=== PATIENT | female | born 1950 | race Caucasian/White ===

== ENCOUNTER 2023-08-25 21:03 | Inpatient (IN) | payer MEDICARE, SELFPAY ==
--- OUTSIDE RECORDS SUMMARY | 2023-08-25 21:06 | XMS_ITS | Continuity of Care Document ---
Author Organization [facility] Address [address] [place] [address]- Care Team Providers Care Clinical Research Tech Name Role Phone Wai MENDEZ, Basilio A Primary Care Physician [phone] [place] [facility] [place] 08/18/23 [facility] [address] [facility] [address] [place] [address]- Referring Physician: Amairani Garza Allergies, Adverse Reactions, Alerts Substance Reaction Severity Status azithromycin rash Active Zithromax skin myles, hives Active Remeron Active clonazePAM Active RisperDAL tremor, tension in muscles A ctive Immunizations Given and Recorded Vaccine Date Status Refusal Reason influenza virus vaccine, inactivated 02/09/16 Give n influenza virus vaccine, inactivated 03/13/15 Give n influenza virus vaccine, inactivated 1 12/24/13 Gi donavon influenza virus vaccine, inactivated 2 12/31/12 Gi donavon pneumococcal 13-valent vaccine 3 11/30/14 Given tetanus/diphtheria/pertussis, acel(Tdap) 4 08/22/14 Given pneumococcal 23-valent vaccine 5 04/08/11 Recorded 1Result Comment: [12/24/2013] Dr. Kamara 2Result Comment: [12/31/2012] Vis given HEATHER 3Result Comment: [11/30/2014] consent signed 4Result Comment: [08/22/2014] consent signed 5Result Comment: [12/31/2012] Per patient done for work- [employer] [facility] Medications acetaminophen 500 mg oral tablet 1 tablet = 500 mg, By Mouth, 3 times a day, PRN as needed for pain, # 24 tablet, 0 Refills, Maintenance, 10/31/20 9:03:00 EDT, Tablet, Partial fill upon patient request if the prescription is for a schedule II opioid drug. Start Date: 10/31/20 Status: Ordered Aricept 5 mg oral tablet 5 mg, 1, tablet, By Mouth, Daily at bedtime, for memory loss; stop if diarrhea, # 30 tablet, Refills 1, Tot. Refills 1, Maintenance, 06/24/23 16:54:00 EDT, Route to Pharmacy Electronically, [facility] #[id number], Partial fill upon patient reques... Start Date: 06/24/23 Stop Date: 08/23/23 Status: Ordered aspirin 81 mg oral capsule 1 capsule = 81 mg, By Mouth, Daily, do not exceed 48 capsules in 24 hours, # 30 capsule, 0 Refills,Maintenance, 02/21/23 10:56:00 EST, Capsule, Partial fill upon patient request if the prescription is for a schedule II opioid drug. Start Date: 02/21/23 Status: Ordered Coenzyme Q10 100 mg oral capsule 1 capsule = 100 mg, By Mouth, Daily, for memory loss, # 30 capsule, 6 Refills, Maintenance, 01/31/23 9:38:00 EDT, Capsule, [facility]/pharmacy #[id number], Partial fill upon patient request if the prescription isfor a schedule II opioid drug. Start Date: 01/31/23 Stop Date: 08/29/23 Status: Ordered Depakote ER 250 mg oral tablet, extended release See Instructions, take 1 tablet with supper and after 2 weeks take 2 tab with supper, # 60 tablet, 0 Refills, Maintenance, 04/01/23 15:21:00 EST, ER Tablet, [facility] #[id number], Partial fill upon patient request if the prescription is for a sc... Start Date: 04/01/23 Status: Ordered escitalopram 10 mg oral tablet TAKE 1 TABLET BY MOUTH EVERY DAY Start Date: 04/14/23 Status: Ordered ibuprofen 600 mg oral tablet 600 mg, 1, tablet, By Mouth, 3 times a day, Refills 0, Maintenance, 09/13/20 17:35:00 EDT, Partial fill upon patient request if the prescription is for a schedule II opioid drug. Start Date: 09/13/20 Status: Ordered Inderal LA 160 mg oral capsule, extended release 1 capsule = 160 mg, By Mouth, Daily, # 30 capsule, 0 Refills, Maintenance, 10/31/20 9:04:00 EDT, [facility], Partial fill upon patient request if the prescription is for a schedule II opioid drug. Start Date: 10/31/20 Status: Ordered Peak Flow Meter See Instructions, # 1 each, Maintenance, log best of 3 at least twice daily until f/u, then with each asthma flare - 493.90, 12/11/12 14:17:20, Compound Start Date: 12/11/12 Status: Ordered prazosin 1 mg oral capsule 1 mg, 1, capsule, By Mouth, Daily at bedtime, Refills 0, Maintenance, 09/13/20 15:41:00 EDT, Partial fill upon patient request if the prescription is for a schedule II opioid drug. Start Date: 09/13/20 Status: Ordered QUEtiapine 25 mg oral tablet TAKE 1/2 TABLET BY MOUTH TWICE A DAY NEEDED Start Date: 04/14/23 Status: Ordered Vitamin B12 = 2,500 mcg, Sublingual, Daily, 0 Refills, Maintenance, 09/13/20 17:38:00 EDT, Partial fill upon patient request if the prescription is for a schedule II opioid drug. Start Date: 09/13/20 Status: Ordered Vitamin D3 oral tablet = 25 mcg, By Mouth, Daily, 0 Refills, Maintenance, 09/13/20 17:37:00 EDT, Partial fill upon patientrequest if the prescription is for a schedule II opioid drug. Start Date: 09/13/20 Status: Ordered Problem List Condition Confirmation Course Effective Dates Status Health St atus Informant Headache Confirmed Active Mild cognitive impairment Confirmed Active Mild persistent asthma Confirmed Active Obese class I Confirmed Active Post-menopausal Confirmed Active Social History Social History Type Response Smoking Status Never (less than 100 in lifetime) entered on: 09/13/20 Sex Patient Care team information Care Team Personnel Name: Basilio Carreno NP Position: Reference Physician Member Role: PCP Address: Address: [address] [place] [id number]- Name: Ese You Position: [facility] Outreach Member Role: Lifetime Consulting Physician Name: Luann Ceballos RN Position: [facility] RN Member Role: Primary Care Nurse Care Team Related Persons Name: MARICRUZ LIVINGSTON
--- OUTSIDE RECORDS SUMMARY | 2023-08-25 21:06 | XMS_ITS | Continuity of Care Document ---
Author Organization [facility] Address [address] [place] [address]- Care Team Providers Care Distribution Collection Operator Name Role Phone Marcelle Ren MD Primary Care Physician Encounter [facility] [place] Date(s): 11/09/20 - 11/09/[address] [address]- Discharge Disposition: A-D/C Home Attending Physician: Wilian Montana MD Admitting Physician: Wilian Montana MD Referring Physician: Wilian Montana MD Allergies, Adverse Reactions, Alerts Substance Reaction Severity [...] Comment: [12/31/2012] Per patient done for [facility]- [facility] Medications acetaminophen 500 mg oral tablet 1 tablet = 500 mg, By Mouth, 3 times a day, PRN as needed for pain, # 24 tablet, 0 Refills, Maintenance, 10/31/20 9:03:00 EDT, Tablet, Partial fill upon patient request if the prescription is for a schedule II opioid drug. Start Date: 10/31/20 Status: Ordered ibuprofen 600 mg oral tablet [...] opioid drug. Start Date: 09/13/20 Status: Ordered sertraline 25 mg oral tablet 2 tablet = 50 mg, By Mouth, Daily at bedtime, # 30 tablet, 0 Refills, Maintenance, 09/13/20 15:41:00 EDT, Tablet, Partial fill upon patient request if the prescription is for a schedule II opioid drug. Start Date: 09/13/20 Status: Ordered Vitamin B12 = 2,500 mcg, [...] Date: 09/13/20 Status: Ordered Problem List Condition Effective Dates Status Health Status Inform ant Headache(Confirmed) Active Mild persistent asthma(Confirmed) Active Post-menopausal(Confirmed) Active Results Radiology Reports * Exam Date Time Procedure Performing Provider Status 11/09/20 11:42 AM XR Lumbar Puncture Therapeutic Kush Heath Madeline (Verified) Notes: (XR Lumbar Puncture Therapeutic) Reason For Exam: nph RESULT: XR Lumbar Puncture Therapeutic Procedure: Fluoroscopic guided lumbar puncture. Indication: Reason: nph; Clinical Question(s): Other: Other: Fluoroscopy time: 1 minute 30 seconds at 3 fps Dose Area Product: 26.24 uGy*m2 Description of procedure: Informed consent was obtained from the patient. A timeout was performed prior to the procedure according to protocol. Sterile technique used used throughout the procedure. 1% lidocaine was used for skin analgesia. A 22 gauge needle was advanced towards the central spinalcanal in the lower lumbar spine directed at the L3-4 level using a posterior sublaminar approach. Clear spinal fluid returned. Opening pressure was measured at 19 centimeters of water in the prone position. Approximately 35 cc fluid was drained. Specimens were sent for requested laboratory studies.The stylet was replaced and the needle was removed. There were no immediate complications. Impression: Fluoroscopic guided lumbar puncture performed without complication. Opening pressure measured 19 centimeters of water. WSN: [id number] Ordering Physician: Jazzmine Medina Dictated By: El Gibbs MD Dictated Date/Time: 11/09/20 1:33 pm Reviewed By: El Gibbs MD Signed By: El Gibbs MD Signed Date/Time: 11/09/20 1:33 pm Transcribed By: DOMINGO Transcribed Date/Time: 11/09/20 1:32 pm Vital Signs Most recent to oldest [Reference Range]: 1 2 3 Height 158 cm (11/09/20 9:28 AM) Oxygen Saturation [94-100 %] 100 % (11/09/20 12:00 PM) 97 % (11/09/20 11:45 AM) 100 % (11/09/20 11:45 AM) Pulse Rate [55-90 bpm] 63 bpm (11/09/20 9:28 AM) Blood Pressure [90-138/55-84 mm Hg] 151/66mm Hg *H* (11/09/20 11:45 AM) 129/58mm Hg (11/09/20 9:28 AM) Respiratory Rate [16-30 br/min] 14 br/min *L* (11/09/20 9:28 AM) Temperature [96.8-100.4 DegF] 97.4 DegF (11/09/20 11:45 AM) 97.7 DegF (11/09/20 9:28 AM) Mode of Delivery (Oxygen) Room air (11/09/20 12:00 PM) Room air (11/09/20 9:28 AM) Blood pressure sites Arm, right (11/09/20 9:28 AM) Temperature Route Temporal (11/09/20 11:45 AM) Temporal (11/09/20 9:28 AM) Dry Weight 73 kg (11/09/20 9:28 AM) Social History Social History Type Response Smoking Status Never (less than 100 in lifetime) entered on: 09/13/20 Sex
--- OUTSIDE RECORDS SUMMARY | 2023-08-25 21:06 | XMS_ITS | Continuity of Care Document ---
Author Organization [facility] Address [address] [place] [address] Gwen colon, [address] [place] [address]- Care Team Providers Care Strategy Intern Name Role Phone Mikal MULLER, Marcelle Primary Care Physician Encounter [facility] Date(s): 02/26/21 - 03/28/21 [facility] [address] [place] [address] Drive, [address] [place] [address]- Allergies, Adverse Reactions, Alerts Substance Reaction Severity Status azithromycin rash Active Zithromax skin myles, hives Active Remeron Active RisperDAL tremor, tension in muscles A ctive clonazePAM Active Immunizations Given and Recorded Vaccine Date Status [...] 5Result Comment: [12/31/2012] Per patient done for [facility] [facility] Medications acetaminophen 500 mg oral tablet [...] Active Mild persistent asthma(Confirmed) Active Post-menopausal(Confirmed) Active Social History Social History Type Response Smoking Status Never (less than 100 in lifetime) entered on: 09/13/20 Sex
--- OUTSIDE RECORDS SUMMARY | 2023-08-25 21:06 | XMS_ITS | Continuity of Care Document ---
Author Organization [facility] Address [address] [place] [address]- Care Team Providers Care Wafer Line Worker Name Role Phone Marcelle Ren MD Primary Care Physician Encounter [facility] [place] Date(s): 05/16/20 - 07/20/20 [facility] [address] [place] [address]- Attending Physician: Radha Neri MD Admitting Physician: Radha Neri MD Referring Physician: Marcelle Ren MD Allergies, Adverse Reactions, Alerts Substance Reaction Severity Status azithromycin rash Active Immunizations Given and Recorded Vaccine Date [...] Comment: [12/31/2012] Per patient done for work- [place] [facility] Medications amoxapine 25 mg oral tablet 1 tablet = 25 mg, By Mouth, 3 times a day, 0 Refills, Maintenance, 03/16/18 9:18:34 EST Start Date: 03/16/18 Status: Ordered Cod liver oil Cod liver oil, Refills 0, Maintenance, 07/15/16 13:28:15, Compound Start Date: 07/15/16 Status: Ordered ibuprofen 200 mg oral tablet 200 mg, 1, tablet, By Mouth, Every 6 hours, Refills 0, Maintenance, 12/18/17 14:03:01 EDT Start Date: 12/18/17 Status: Ordered Lions Magdy Lipoonam Curran, Refills 0, Maintenance, 07/15/16 13:28:47, Compound Start Date: 07/15/16 Status: Ordered Peak Flow Meter See Instructions, # 1 each, Maintenance, log best of 3 at least twice daily until f/u, then with each asthma flare - 493.90, 12/11/12 14:17:20, Compound Start Date: 12/11/12 Status: Ordered Vitamin D3 2000 intl units oral tablet 1 tablet = 2,000 International_Units, By Mouth, Daily, # 30 tablet, 6 Refills, Maintenance, 04/28/15 11:12:37, 1 tablet By Mouth Daily,x30 days Start Date: 04/28/15 Stop Date: 11/24/15 Status: Ordered Problem List Condition Effective Dates Status Health Status Inform ant Headache(Confirmed) Active Mild persistent asthma(Confirmed) Active Post-menopausal(Confirmed) Active Social History Social History Type Response Smoking Status Never smoker; Tobacc o user in household: No entered on: 10/25/14 Sex
--- OUTSIDE RECORDS SUMMARY | 2023-08-25 21:06 | XMS_ITS | Continuity of Care Document ---
Author Organization [facility] Address Unknown Care Team Providers Care Billing Auditor Name Role Phone Marcelle Ren MD Primary Care Physician [facility] [facility] [place] [facility] [place] [id number] Date(s): 03/08/21 - 04/07/21 [facility] Attending Physician: Ricki Underwood Admitting Physician: Ricki Underwood Referring Physician: AdmtrRicki Allergies, Adverse Reactions, Alerts Substance Reaction Severity [...] 5Result Comment: [12/31/2012] Per patient done for [facility] retreat Medications acetaminophen 500 mg oral tablet [...]
--- OUTSIDE RECORDS SUMMARY | 2023-08-25 21:06 | XMS_ITS | Continuity of Care Document ---
Author Organization [facility] Address [address] [place] [address]- Care Team Providers Care Housecalls Nurse Name Role Phone Marcelle Ren MD Primary Care Physician [place] [facility] [place](s): 10/03/20 - 11/02/20 [facility] [address] [place] [address]- Referring Physician: Amairani Garza Allergies, Adverse Reactions, [...] 5Result Comment: [12/31/2012] Per patient done for [facility] retreat Medications acetaminophen 500 mg oral [...]
--- OUTSIDE RECORDS SUMMARY | 2023-08-25 21:06 | XMS_ITS | Continuity of Care Document ---
Author Organization [facility] Address [address] [place] [address]- Care Team Providers Care Fire Boat Engineer Name Role Phone Kyle MENDEZ, Maria Esther Garcia Primary Care Physician Encounter [facility] [place] Date(s): 09/17/22 - 11/08/22 [facility] [address] [place] [address]- Encounter Diagnosis Pain in right knee(Final) - Discharge Disposition: A-D/C Home Attending Physician: Basilio Carreno NP Admitting Physician: Basilio Carreno NP Referring Physician: Basilio Carreno NP Allergies, Adverse Reactions, Alerts Substance Reaction Severity [...] patient done for work- [place] [facility] Medications acetaminophen 500 mg oral tablet 1 tablet = 500 mg, By Mouth, 3 times a day, PRN as needed for pain, # 24 tablet, 0 Refills, Maintenance, 07/27/21 9:03:00 EDT, Tablet, Partial fill upon patient [...] St atus Informant Headache Confirmed Active Mild persistent asthma Confirmed Active Post-menopausal Confirmed Active Social History Social History Type Response Smoking Status Never (less than 100 in lifetime) entered on: 09/13/20 Sex Patient Care team information Care Team Personnel Name: Ese You Position: [facility] Outreach Member Role: Lifetime Consulting Physician Name: Maria Esther Wright NP Position: [facility] Outreach Member Role: PCP Address: Address: [address] [place] [id number] Name: Luann Ceballos RN Position: [facility] RN Member Role: Primary Care Nurse Care Team Related Persons Name: MARICRUZ LIVINGSTON
--- OUTSIDE RECORDS SUMMARY | 2023-08-25 21:06 | XMS_ITS | Continuity of Care Document ---
Author Organization [facility] Address [address] [place] [address] darlene, [address] [place] [address]- Care Team Providers Care Travel Money Advisor Name Role Phone Mikal MULLER, Marcelle Primary Care Physician Encounter [facility] Date(s): 02/26/21 - 04/11/21 [facility] [address] [place] [address] Drive, [address] [place], [place] [address] Attending Physician: Hang Stein MD Referring Physician: Kyle MENDEZ, Maria Esther Garcia Allergies, Adverse Reactions, Alerts Substance Reaction Severity [...]
--- OUTSIDE RECORDS SUMMARY | 2023-08-25 21:07 | XMS_ITS | Continuity of Care Document ---
Author Organization [facility] Address Unknown Care Team Providers Care Police Detective Name Role Phone Marcelle Ren MD Primary Care Physician Encounter [facility] [place] Date(s): 09/07/21 - 10/07/21 [facility] Attending Physician: Ricki Underwood Admitting Physician: Ricki Underwood Referring Physician: AdmRicki forman Allergies, Adverse Reactions, Alerts Substance Reaction Severity Status azithromycin rash Active Zithromax skin myles, hives Active clonazePAM Active RisperDAL tremor, tension in muscles A ctive Remeron Active Immunizations Given and Recorded Vaccine Date [...] Comment: [12/31/2012] Per patient done for work- [place] [facility] Medications acetaminophen 500 mg oral tablet [...]
--- OUTSIDE RECORDS SUMMARY | 2023-08-25 21:07 | XMS_ITS | Continuity of Care Document ---
Author Organization [facility] Address [address] [facility], [address]r d Floor, [address] [place] [address]- Care Team Providers Care Senior Producer Name Role Phone Marcelle Ren MD Primary Care Physician Encounter [facility] Date(s): 11/01/20 - 11/08/20 [facility] [address] [place], [address] Floor, [address] [place] [id number] Attending Physician: Jazzmine Medina DNP Referring Physician: Marcelle Ren MD Allergies, Adverse [...] Active Mild persistent asthma(Confirmed) Active Post-menopausal(Confirmed) Active Vital Signs Most recent to oldest [Reference Range]: 1 Height 158 cm (11/01/20 8:45 AM) Weight 71.8 kg (11/01/20 8:45 AM) Pulse Rate [55-90 bpm] 63 bpm (11/01/20 8:45 AM) Body Mass Index [18.5-24.99] 28.76 *H* (11/01/20 8:45 AM) Blood Pressure [90-138/55-84 mm Hg] 121/ 65mm Hg (11/01/20 8:45 AM) Blood pressure sites Arm, right (11/01/20 8:45 AM) Social History Social History Type Response Smoking Status Never (less than 100 in lifetime) entered on: 09/13/20 Sex
--- OUTSIDE RECORDS SUMMARY | 2023-08-25 21:07 | XMS_ITS | Continuity of Care Document ---
Author Organization [facility] Address [address] [place] [address]- Care Team Providers Care Harpoon Engagement Planning Operator Name Role Phone Marcelle Ren MD Primary Care Physician [place] [facility] [place](s): 11/22/20 - 12/22/20 [facility] [address] [place] [address]- Attending Physician: AdmRicki forman Admitting Physician: Admtr, Ricki Referring Physician: Admtr, Ar8 Allergies, Adverse Reactions, Alerts Substance Reaction Severity [...] Comment: [12/31/2012] Per patient done for [facility]- [facility] Medications acetaminophen 500 mg oral tablet [...]
--- OUTSIDE RECORDS SUMMARY | 2023-08-25 21:07 | XMS_ITS | Continuity of Care Document ---
Author Organization [facility] Address [address] [place] [address]- Care Team Providers Care Podiatry Doctor Name Role Phone Kyle MENDEZ, Maria Esther Garcia Primary Care Physician [place] [facility] [place] 11[place]30[place]21 - 01/05/22 [facility] [address] [place] [address]- Attending Physician: Maria Esther Wright NP Admitting Physician: Kyle MENDEZ, Maria Esther Garcia Referring Physician: Maria Esther Wright NP Allergies, Adverse Reactions, Alerts Substance Reaction [...] on: 09/13/20 Sex Patient Care team information Personnel Name: Kyle MENDEZ, Maria Esther Garcia Address: Address: [address] [place] [id number]
--- OUTSIDE RECORDS SUMMARY | 2023-08-25 21:07 | XMS_ITS | Continuity of Care Document ---
Author Organization [facility] Address Unknown Care Team Providers Care Rn Interventional Name Role Phone Marcelle Ren MD Primary Care Physician Encounter [facility] [place] Date(s): 11/10/20 - 12/10/20 [facility] Allergies, Adverse Reactions, Alerts Substance Reaction Severity [...] 5Result Comment: [12/31/2012] Per patient done for [facility] retreat Medications acetaminophen 500 mg oral [...]
--- OUTSIDE RECORDS SUMMARY | 2023-08-25 21:07 | XMS_ITS | Continuity of Care Document ---
Author Organization [facility] Address [address] [facility], [address] d Floor, [address] [place] [address]- Care Team Providers Care Production Cook Name Role Phone Wai MENDEZ, Basilio Mckeon Primary Care Physician [phone] Encounter [facility] Date(s): 03/25/23 - 04/24/23 [facility] [address] [place], [address] Floor, [address] [place] [address]- Allergies, Adverse Reactions, Alerts Substance Reaction Severity [...] 5Result Comment: [12/31/2012] Per patient done for [facility] retreat Medications acetaminophen 500 mg oral tablet 1 tablet = 500 mg, By Mouth, 3 times a day, PRN as needed for pain, # 24 tablet, 0 Refills, Maintenance, 10/31/20 9:03:00 EDT, Tablet, Partial fill upon patient request if the prescription is for a schedule II opioid drug. Start Date: 10/31/20 Status: Ordered aspirin 81 mg oral capsule [...] 6 Refills, Maintenance, 01/31/23 9:38:00 EDT, Capsule, [facility]/pharmacy #[id number], Partial fill upon patient request if the prescription isfor a schedule II opioid drug. Start Date: 01/31/23 Stop Date: 08/29/23 Status: Ordered Depakote ER 250 mg oral tablet, extended release See Instructions, take 1 tablet with supper and after 2 weeks take 2 tab with supper, # 60 tablet, 0 Refills, Maintenance, 04/01/23 15:21:00 EST, ER Tablet, [facility] #[id number], Partial fill upon patient request if the [...] Reference Physician Member Role: PCP Address: Address: [address] [place] [address] Name: Ese You Position: [facility] Outreach Member Role: Lifetime Consulting Physician Name: Luann Ceballos RN Position: [facility] RN Member Role: Primary Care Nurse Care Team Related Persons Name: MARICRUZ LIVINGSTON
--- OUTSIDE RECORDS SUMMARY | 2023-08-25 21:07 | XMS_ITS | Continuity of Care Document ---
Author Organization [facility] Address [address] [place] [address]- Care Team Providers Care Finishing Manager Name Role Phone Marcelle Ren MD Primary Care Physician Encounter [facility] [place] Date(s): 06/20/20 - 07/20/20 [facility] [address] [place] [address]- Attending Physician: AdmtrRicki Admitting Physician: AdmtrRicki Referring Physician: Admtr, Ar8 Allergies, Adverse Reactions, [...] Date: 12/18/17 Status: Ordered Lions Magdy Lipoonam Magdy, Refills 0, Maintenance, 07/15/16 13:28:47, Compound Start [...]
--- OUTSIDE RECORDS SUMMARY | 2023-08-25 21:07 | XMS_ITS | Continuity of Care Document ---
Author Organization [facility] Address [address] [place] [address]- Care Team Providers Care Manager Oncology Name Role Phone Wai MENDEZ, Basilio Mckeon Primary Care Physician [place] [facility] [place] - 08/21/[address] [address]- Discharge Disposition: A-D/C Home Attending Physician: Pro Castellon MD Admitting Physician: Pro Castellon MD Referring Physician: Not on Staff, Referring MD Allergies, Adverse Reactions, Alerts Substance Reaction Severity Status azithromycin rash Active Zithromax skin myles, hives Active RisperDAL tremor, tension in muscles A ctive Remeron Active clonazePAM Active Immunizations Given and Recorded Vaccine [...] Comment: [12/31/2012] Per patient done for [facility]- [facility] Medications acetaminophen 500 mg oral tablet [...] 06/24/23 16:54:00 EDT, Route to Pharmacy Electronically, [id number], Partial fill upon patient reques... Start Date: [...] 6 Refills, Maintenance, 01/31/23 9:38:00 EDT, Capsule, [facility]/pharmacy #[id number], Partial fill upon patient request if the prescription isfor a schedule II opioid drug. Start Date: 01/31/23 Stop Date: 08/29/23 Status: Ordered Depakote ER 250 mg oral tablet, extended release See Instructions, take 1 tablet with supper and after 2 weeks take 2 tab with supper, # 60 tablet, 0 Refills, Maintenance, 04/01/23 15:21:00 EST, ER Tablet, [id number], Partial fill upon patient request if the [...] opioid drug. Start Date: 09/13/20 Status: Ordered propranolol 80 mg oral capsule, extended release 160 mg, CR Capsule, By Mouth, 08/21/23 9:12:00 EDT Start Date: 08/21/23 Stop Date: 08/21/23 Status: Completed QUEtiapine 25 mg oral tablet TAKE 1/2 [...] List Condition Confirmation Course Effective Dates Status [facility] Headache Confirmed Active Mild cognitive impairment Confirmed Active Mild persistent asthma Confirmed Active Obese class I Confirmed Active Post-menopausal Confirmed Active Results Radiology Reports * Exam Date Time Procedure Performing Provider Status 08/21/23 6:[address] Head/Brain W/O Contrast Hafsa , Dorothy Cervantes; Auth (Verified) Notes: (CT Head/Brain W/O Contrast) Reason For Exam: Neuro deficit, acute, stroke suspected;Other: RESULT: CT Head/Brain W/O Contrast CT Head/Brain W/O Contrast Hx of Present Illness: my knees are restless. Reason: Other:; Neuro deficit, acute, stroke suspected. Clinical Question(s): Hematoma Infarction. TECHNIQUE: Noncontrast head CT using axial technique and reconstructed in axial and coronal planes.Weight-based protocol using automatic tube modulation was used to optimize exposure parameters. CTDIvol Head: 46.30 mGy, DLP Head: 773 mGy*cm. COMPARISON: 06/29/2014. Additional correlation with MRI brain 02/10/2023, 10/06/2020. FINDINGS: BRAIN and EXTRA-AXIAL SPACES: No parenchymal hemorrhage, midline shift or mass effect. Hernández-white matter differentiation is well preserved. No acute infarct. Negative insular ribbon sign. Atherosclerotic vascular calcification ofthe carotid and vertebral arteries but negative hyperdense vessel sign. Mild prominence of the ventricles and sulci consistent with parenchymal volume loss. Mild low-density white matter changes. No subarachnoid hemorrhage, subdural or epidural collections. CALVARIUM, SKULL BASE AND SOFT TISSUES: No fractures or suspicious bony lesions. The paranasal sinuses and mastoid air cells are clear. Status-post bilateral lens extraction. The extracranial soft tissues are unremarkable. IMPRESSION: No acute intracranial abnormality. I have personally reviewed the images and I agree with this report. WSN: [id number] Ordering Physician: Wang Hui Dictated By: Abhinav Rizvi MD Dictated Date/Time: 08/21/23 8:00 am Reviewed By: Nik Alonzo MD Signed By: Nik Alonzo MD Signed Date/Time: 08/21/23 8:05 am Transcribed By: DOMINGO Transcribed Date/Time: 08/21/23 7:44 am Vital Signs Most recent to oldest [Reference Range]: 1 2 3 Height 158 cm (08/21/23 11:36 AM) 158 cm (08/21/23 2:20 AM) Weight 78 kg (08/21/23 11:36 AM) 78 kg (08/21/23 2:20 AM) Oxygen Saturation [94-100 %] 96 % (08/21/23 11:36 AM) 94 % (08/21/23 6:17 AM) 95 % (08/21/23 2:20 AM) Pulse Rate [55-90 bpm] 70 bpm (08/21/23 11:38 AM) 70 bpm (08/21/23 11:36 AM) 84 bpm (08/21/23 6:17 AM) Body Mass Index [18.5-24.99 kg/m2] 31.24 kg/m2 *>HHI* (08/21/23 11:36 AM) Blood Pressure [90-138/55-84 mm Hg] 142/62mm Hg *H* (08/21/23 11:38 AM) 142/62mm Hg *H* (08/21/23 11:36 AM) 112/99mm Hg (08/21/23 6:17 AM) Respiratory Rate [16-30 br/min] 16 br/min (08/21/23 11:36 AM) 18 br/min (08/21/23 6:17 AM) 18 br/min (08/21/23 2:20 AM) Temperature [96.8-100.4 DegF] 98.1 DegF (08/21/23 6:17 AM) Mode of Delivery (Oxygen) Room air (08/21/23 11:36 AM) Room air (08/21/23 6:17 AM) Room air (08/21/23 2:20 AM) Blood pressure sites Arm, right (08/21/23 11:36 AM) Temperature Route Oral (08/21/23 6:17 AM) Dry Weight 78 kg (08/21/23 11:36 AM) 78 kg (08/21/23 2:20 AM) Social History Social History Type Response Smoking Status Never (less than 100 in lifetime) entered on: 09/13/20 Sex Patient Care team information Care Team Personnel Name: Basilio Carreno NP Position: Reference Physician Member Role: PCP Address: Address: [address] [place] [id number] Name: Ese You Position: [facility] Outreach Member Role: Lifetime Consulting Physician Name: Luann Ceballos RN Position: S RN Member Role: Primary Care Nurse Care Team Related Persons Name: MARICRUZ LIVINGSTON
--- OUTSIDE RECORDS SUMMARY | 2023-08-25 21:07 | XMS_ITS | Continuity of Care Document ---
Author Organization [facility] Address Unknown Care Team Providers Care Journeyman Pressman Name Role Phone Marcelle Ren MD Primary Care Physician [place] [facility] [place] 09/07/21 - 09/14/21 [facility] Attending Physician: Jazzmine Medina DNP Referring Physician: [...] Comment: [12/31/2012] Per patient done for work- [employer] [facility] Medications acetaminophen 500 mg oral tablet [...]
--- OUTSIDE RECORDS SUMMARY | 2023-08-25 21:07 | XMS_ITS | Continuity of Care Document ---
Author Organization [facility] Address [address] [place], [place] [address]erv[address] [place], [address] [place] [address]- Care Team Providers Care Budget Clerk Name Role Phone Marcelle Ren MD Primary Care Physician Encounter [facility] Date(s): 03/12/21 - 04/11/[address], [address] [place], [place] [address] Attending Physician: AdmtrRicki Admitting Physician: Admtr, Ar8 Referring Physician: Admtr, Ar8 Allergies, Adverse Reactions, [...]
--- OUTSIDE RECORDS SUMMARY | 2023-08-25 21:07 | XMS_ITS | Continuity of Care Document ---
Author Organization [facility] Address [address] [facility], 3r d Floor, [address] [place] [address]- Care Team Providers Care Electromechanical Technologist Name Role Phone Wai MENDEZ, Basilio Mckeon Primary Care Physician Encounter [facility] Date(s): 04/18/23 - 05/18/23 [facility] [address], [address]rd Floor, [address] [place] [address]- Allergies, Adverse Reactions, Alerts Substance Reaction Severity [...] 5Result Comment: [12/31/2012] Per patient done for [facility] retreat Medications acetaminophen 500 mg oral tablet [...] 6 Refills, Maintenance, 01/31/23 9:38:00 EDT, Capsule, [facility]/pharmacy #[id number], Partial fill upon patient request if the prescription isfor a schedule II opioid drug. Start Date: 01/31/23 Stop Date: 08/29/23 Status: Ordered Depakote ER 250 mg oral tablet, extended release See Instructions, take 1 tablet with supper and after 2 weeks take 2 tab with supper, # 60 tablet, 0 Refills, Maintenance, 04/01/23 15:21:00 EST, ER Tablet, [facility] #[id number], Partial fill upon patient request if the [...] Reference Physician Member Role: PCP Address: Address: [address] [place] [address] Name: Ese You Position: [facility] Outreach Member Role: Lifetime Consulting Physician Name: Luann Ceballos RN Position: [facility] RN Member Role: Primary Care Nurse Care Team Related Persons Name: MARICRUZ LIVINGSTON
--- OUTSIDE RECORDS SUMMARY | 2023-08-25 21:07 | XMS_ITS | Continuity of Care Document ---
Author Organization [facility] Address [address] [place] [address]- Care Team Providers Care Jewelry Internship Name Role Phone Kyle MENDEZ, Maria Esther Garcia Primary Care Physician [phone] Encounter [facility] [place] Date(s): 02/12/22 - 03/14/[address] [address]- Attending Physician: Ricki Underwood Admitting Physician: AdmtrRicki Referring Physician: Admtr, Ar8 Allergies, Adverse Reactions, Alerts Substance Reaction Severity Status azithromycin rash Active Zithromax skin myles, hives Active RisperDAL tremor, tension in muscles A ctive clonazePAM Active Remeron Active Immunizations Given and Recorded Vaccine [...] Dr. Kamara 2Result Comment: [12/31/2012] Vis given HEATEHR 3Result Comment: [11/30/2014] consent signed 4Result Comment: [08/22/2014] consent signed 5Result Comment: [12/31/2012] Per patient done for work- [facility] Medications acetaminophen 500 mg oral tablet [...] Care Team Personnel Name: Ese You Position: [facility] Outreach Member Role: Lifetime Consulting Physician Name: Maria Esther Wright NP Position: [facility] Outreach Member Role: PCP Address: Address: [address] [place] [address]- Name: Luann Ceballos RN Position: [facility] RN Member Role: Primary Care Nurse Care Team Related Persons Name: MARICRUZ LIVINGSTON
--- OUTSIDE RECORDS SUMMARY | 2023-08-25 21:07 | XMS_ITS | Continuity of Care Document ---
Author Organization [facility] Address [address] [employer] [address] [employer], 3r d Floor, [address] [place] [address]- Care Team Providers Care Automation Test Engineer Name Role Phone Wai MENDEZ, Basilio Mckeon Primary Care Physician [facility]counter [facility] Date(s): 04/14/23 - 05/14/23 [facility] [address], 3rd Floor, [address] [place] [id number] Attending Physician: Ricki Underwood Admitting Physician: AdmtrRicki [...] 6 Refills, Maintenance, 01/31/23 9:38:00 EDT, Capsule, [facility]/pharmacy #[id number], Partial fill upon patient request if the prescription isfor a schedule II opioid drug. Start Date: 01/31/23 Stop Date: 08/29/23 Status: Ordered Depakote ER 250 mg oral tablet, extended release See Instructions, take 1 tablet with supper and after 2 weeks take 2 tab with supper, # 60 tablet, 0 Refills, Maintenance, 04/01/23 15:21:00 EST, ER Tablet, [facility] #[id number], Partial fill upon patient request if the [...] Condition Confirmation Course Effective Dates Status [facility] Headache Confirmed Active Mild persistent asthma Confirmed Active Post-menopausal Confirmed Active Social History Social History Type Response Smoking Status Never (less than 100 in lifetime) entered on: 09/13/20 Sex Patient Care team information Care Team Personnel Name: Basilio Carreno NP Position: Reference Physician Member Role: PCP Address: Address: [address] [place] [id number] Name: Ese You Position: S Outreach Member Role: Lifetime Consulting Physician Name: Luann Ceballos RN Position: S RN Member Role: Primary Care Nurse Care Team Related Persons Name: MARICRUZ LIVINGSTON
--- OUTSIDE RECORDS SUMMARY | 2023-08-25 21:07 | XMS_ITS | Continuity of Care Document ---
Author Organization [facility] Address [address] [place] [address]- Care Team Providers Care Sugar Trucker Name Role Phone Marcelle Ren MD Primary Care Physician [place] [facility] [place] - 10/01/[address] [address]- Attending Physician: Marcelle Ren MD Admitting Physician: Marcelle Ren MD Referring Physician: Marcelle Ren MD Allergies, [...] Comment: [12/31/2012] Per patient done for work- [place] retreat Medications acetaminophen-oxyCODONE 325 mg-5 mg oral tablet 1, tablet, By Mouth, Every 8 hours, PRN, Refills 0, Tot. Refills 0, Maintenance, Pain , Moderate, 09/13/20 17:41:00 EDT, Partial fill upon patient request if the prescription is for a schedule II opioid drug. Start Date: 09/13/20 Status: Ordered ibuprofen 600 mg oral tablet 600 mg, 1, tablet, By Mouth, 3 times a day, Refills 0, Maintenance, 09/13/20 17:35:00 EDT, Partial fill upon patient request if the prescription is for a schedule II opioid drug. Start Date: 09/13/20 Status: Ordered Peak Flow Meter See Instructions, [...] drug. Start Date: 09/13/20 Status: Ordered propranolol 160 mg oral capsule, extended release 1 capsule = 160 mg, By Mouth, Daily at bedtime, # 30 capsule, 0 Refills, Maintenance, 09/13/20 17:35:00 EDT, CR Capsule, Partial fill upon patient request if [...] Start Date: 09/13/20 Status: Ordered Vitamin D3 2000 intl units oral tablet 1 tablet = 2,000 International_Units, By Mouth, Daily, # 30 tablet, 6 Refills, Maintenance, 04/28/15 11:12:37, 1 tablet By Mouth Daily,x30 days Start Date: 04/28/15 Stop Date: 11/24/15 Status: Ordered Vitamin D3 oral tablet = [...]
--- OUTSIDE RECORDS SUMMARY | 2023-08-25 21:07 | XMS_ITS | Continuity of Care Document ---
Author Organization [facility] Address [address] [facility], 3r d Floor, [address] [place] [address]- Care Team Providers Care Overseer Kosher Kitchen Name Role Phone Mikal MULLER, Marcelle Primary Care Physician [facility]counter [facility] Date(s): 11/09/20 - 11/16/20 [facility] [address], 3rd Floor, [address] [place] [id number] Attending Physician: Xiomara MULLER, Prieto Allergies, Adverse Reactions, Alerts Substance Reaction Severity [...] 5Result Comment: [12/31/2012] Per patient done for [facility] retreat Medications acetaminophen 500 mg oral [...]
--- OUTSIDE RECORDS SUMMARY | 2023-08-25 21:07 | XMS_ITS | Continuity of Care Document ---
Author Organization [facility] Address [address] [facility], 3[address] d Floor, [address] [place] [address]- Care Team Providers Care Dean Of Student Services Name Role Phone Kyle MENDEZ, Maria Esther Garcia Primary Care Physician Encounter [facility] Date(s): 11/29/22 - 02/15/23 [facility] [address], 3rd Floor, [address] [place] [id number] Attending Physician: Prieto Solano MD Admitting Physician: Prieto Solano MD Allergies, Adverse Reactions, Alerts Substance Reaction [...] opioid drug. Start Date: 10/31/20 Status: Ordered Coenzyme Q10 100 mg oral capsule 1 capsule = 100 mg, By Mouth, Daily, for memory loss, # 30 capsule, 6 Refills, Maintenance, 01/31/23 9:38:00 EDT, Capsule, [facility]/pharmacy #[id number], Partial fill upon patient request if the prescription isfor a schedule II opioid drug. Start Date: 01/31/23 Stop Date: 08/29/23 Status: Ordered ibuprofen 600 mg oral tablet [...] Care Team Personnel Name: Ese You Position: S Outreach Member Role: Lifetime Consulting Physician Name: Maria Esther Wright NP Position: S Outreach Member Role: PCP Address: Address: [address] [place] [address]- Name: Luann Ceballos RN Position: [facility] RN Member Role: Primary Care Nurse Care Team Related Persons Name: MARICRUZ LIVINGSTON
--- OUTSIDE RECORDS SUMMARY | 2023-08-25 21:07 | XMS_ITS | Continuity of Care Document ---
Author Organization [facility] Address Unknown Care Team Providers Care Procurement Assistant Name Role Phone Marcelle Ren MD Primary Care Physician [place] [facility] [place] 12/26/20 - 01/25/21 [facility] Allergies, Adverse Reactions, Alerts Substance [...] 5Result Comment: [12/31/2012] Per patient done for [facility] retreat Medications acetaminophen 500 mg oral [...]
--- OUTSIDE RECORDS SUMMARY | 2023-08-25 21:08 | XMS_ITS | Continuity of Care Document ---
Author Organization [facility] Address [address] [facility], 3r d Floor, [address] [place] [address]- Care Team Providers Care Assistant Warehouse Manager Name Role Phone Kyle MENDEZ, Maria Esther Garcia Primary Care Physician Encounter [facility] Date(s): 11/26/22 - 12/26/22 [facility] [address] [place], 3rd Floor, [address] [place] [id number] Allergies, Adverse Reactions, Alerts Substance Reaction Severity [...] 5Result Comment: [12/31/2012] Per patient done for [facility] retreat Medications acetaminophen 500 mg oral [...] Physician Name: Maria Esther Wright NP Position: [facility] Outreach Member Role: PCP Address: Address: [address] [place] [address] Name: Luann Ceballos RN Position: [facility] RN Member Role: Primary Care Nurse Care Team Related Persons Name: MARICRUZ LIVINGSTON
--- OUTSIDE RECORDS SUMMARY | 2023-08-25 21:08 | XMS_ITS | Continuity of Care Document ---
Author Organization [facility] Address [address] [place] [address]- Care Team Providers Care Digital Pre Press Operator Name Role Phone Marcelle Ren MD Primary Care Physician Encounter [facility] [place] Date(s): 11/22/20 - 01/22/[address] [address]- Encounter Diagnosis Mild cognitive impairment, so stated(Final) - Discharge Disposition: A-D/C Home Attending Physician: Prieto Solano MD Admitting Physician: Prieto Solano MD Referring Physician: Prieto Solano MD Allergies, Adverse Reactions, [...]
--- OUTSIDE RECORDS SUMMARY | 2023-08-25 21:08 | XMS_ITS | Continuity of Care Document ---
Author Organization [facility] Address [address] [place] [address]- Care Team Providers Care Telesales Representative Name Role Phone Wai MENDEZ, Basilio Mckeon Primary Care Physician [phone] Encounter [facility] [place] Date(s): 02/27/23 - 04/04/[address] [address] Attending Physician: Prieto Solano MD Admitting Physician: [...] 6 Refills, Maintenance, 01/31/23 9:38:00 EDT, Capsule, [facility]/pharmacy #[id number], Partial fill upon patient request if the prescription isfor a schedule II opioid drug. Start Date: 01/31/23 Stop Date: 08/29/23 Status: Ordered Depakote ER 250 mg oral tablet, extended release See Instructions, take 1 tablet with supper and after 2 weeks take 2 tab with supper, # 60 tablet, 0 Refills, Maintenance, 04/01/23 15:21:00 EST, ER Tablet, [facility] #[id number], Partial fill upon patient request if the prescription is for a sc... Start Date: 04/01/23 Status: Ordered ibuprofen 600 mg oral tablet [...] Reference Physician Member Role: PCP Address: Address: [address] [place] [address] Name: Ese You Position: [facility] Outreach Member Role: Lifetime Consulting Physician Name: Luann Ceballos RN Position: [facility] RN Member Role: Primary Care Nurse Care Team Related Persons Name: MARICRUZ LIVINGSTON
--- OUTSIDE RECORDS SUMMARY | 2023-08-25 21:08 | XMS_ITS | Continuity of Care Document ---
Author Organization [facility] Address Unknown Care Team Providers Care Clinical Care Manager Name Role Phone Marcelle Ren MD Primary Care Physician Encounter [facility] Date(s): 11/09/20 - 12/09/20 [facility] Attending Physician: Ricki Underwood Admitting Physician: Ricki Underwood Referring Physician: Ricki Underwood Allergies, Adverse Reactions, Alerts Substance Reaction Severity [...] Comment: [12/31/2012] Per patient done for work- [employer] [place] [facility] Medications acetaminophen 500 mg oral tablet [...]
--- OUTSIDE RECORDS SUMMARY | 2023-08-25 21:08 | XMS_ITS | Continuity of Care Document ---
Author Organization [facility] Address [address] [place] [address]- Care Team Providers Care Deputy Controller Name Role Phone Kyle MENDEZ, Maria Esther Garcia Primary Care Physician [place] [facility] [place](s): 02/14/23 - 03/16/23 [facility] [address] [place] [address]- [place] Allergies, Adverse Reactions, Alerts Substance Reaction Severity [...] Comment: [12/31/2012] Per patient done for work- [employer] [facility] Medications acetaminophen 500 mg oral tablet [...] 6 Refills, Maintenance, 01/31/23 9:38:00 EDT, Capsule, [facility]/pharmacy #[id number], Partial fill upon patient request [...] Care Team Personnel Name: Ese You Position: [facility] Outreach Member Role: Lifetime Consulting Physician Name: Maria Esther Wright NP Position: [facility] Outreach Member Role: PCP Address: Address: [address] [place] [address]- Name: Luann Ceballos RN Position: [facility] RN Member Role: Primary Care Nurse Care Team Related Persons Name: MARICRUZ LIVINGSTON
--- OUTSIDE RECORDS SUMMARY | 2023-08-25 21:08 | XMS_ITS | Continuity of Care Document ---
Author Organization [facility] Address [address] [place] [address]- Care Team Providers Care In Flight Technician Name Role Phone Kyle MENDEZ, Maria Esther Garcia Primary Care Physician [phone] Encounter [facility] [place] Date(s): 10/30/22 - 11/29/22 [facility] [address] [place] [address]- Attending Physician: Ricki Underwood Admitting Physician: Admtr, Ricki Referring Physician: Admtr, [...] Comment: [12/31/2012] Per patient done for [facility] Medications acetaminophen 500 mg oral [...] Care Team Personnel Name: Ese You Position: [facility] Outreach Member Role: Lifetime Consulting Physician Name: Maria Esther Wright NP Position: [facility] Outreach Member Role: PCP Address: Address: [address] [place] [address]- Name: Luann Ceballos RN Position: [facility] RN Member Role: Primary Care Nurse Care Team Related Persons Name: MARICRUZ LIVINGSTON
--- OUTSIDE RECORDS SUMMARY | 2023-08-25 21:08 | XMS_ITS | Continuity of Care Document ---
Author Organization [facility] Address [address] [facility], 3r d Floor, [address] [place] [address]- Care Team Providers Care Peanut Grader Name Role Phone Marcelle Ren MD Primary Care Physician [facility]counter [facility] Date(s): 09/25/20 - 10/25/20 [facility] [address] [place], [address]rd Floor, [address] [place] [id number] Referring Physician: Amairani Garza Allergies, Adverse Reactions, [...] Comment: [12/31/2012] Per patient done for work- [place] [facility] Medications acetaminophen-oxyCODONE 325 mg-5 mg oral [...]
--- OUTSIDE RECORDS SUMMARY | 2023-08-25 21:08 | XMS_ITS | Continuity of Care Document ---
Author Organization [facility] Address [address] [place] [address]- Care Team Providers Care [employer] Name Role Phone Marcelle Ren MD Primary Care Physician Encounter [facility] [place] Date(s): 09/13/20 - 09/16/[address] [address]- Encounter Diagnosis Dental abscess(Final) - 09/13/20 Discharge Disposition: A-D/C Home Attending Physician: Jana Goyal MD Admitting Physician: Greg MULLER, Jovanny Mckeon Referring Physician: Not on Staff, Referring MD [...] Comment: [12/31/2012] Per [facility] for [facility] Medications Acetaminophen Tablet 650 mg, Tablet, By Mouth, Every 4 hours, PRN for Pain , Mild, Temperature Greater than 100.5, Routine, 09/13/20 14:59:00 EDT Start Date: 09/13/20 Stop Date: 09/17/20 Status: Discontinued acetaminophen-oxyCODONE 325 mg-5 mg oral tablet 1, tablet, By Mouth, Every 8 hours, PRN, Refills 0, Tot. Refills 0, Maintenance, Pain , Moderate, 09/13/20 17:41:00 EDT, Partial fill upon patient request if the prescription is for a schedule II opioid drug. Start Date: 09/13/20 Status: Ordered amoxicillin-clavulanate 875 mg-125 mg oral tablet = 875 mg, By Mouth, 2 times a day, for 10 days, # 20 tablet, 0 Refills, Acute 09/26/20 8:18:00 EDT,09/16/20 8:18:00 EDT, Tablet, [facility]- [id number], Partial fill upon patient requestif the prescription is for a schedule II opioid елена... Start Date: 09/16/20 Stop Date: 09/26/20 Status: Ordered ibuprofen 600 mg oral tablet [...] release 160 mg, CR Capsule, By Mouth, 09/16/20 9:00:00 EDT Start Date: 09/16/20 Stop Date: 09/16/20 Status: Completed sertraline 25 mg oral tablet 2 tablet [...] Mild persistent asthma(Confirmed) Active Post-menopausal(Confirmed) Active Results Orders for Microbiology Reports Name Date Blood Culture 09/13/20 Blood Culture #2 09/13/20 Microbiology Reports TEST:Blood Culture, Second Order STATUS:Unauthenticated BODY SITE: SOURCE:Blood COLLECTED DATE/TIME:09/13/20 12:01 PM Blood Culture, Second Order SPECIMEN DESCRIPTION : BLOOD LAC SPECIAL REQUESTS : NONE CULTURE : NO GROWTH 3 DAYS REPORT STATUS : PRELIMINARY REPORT TEST:Blood Culture STATUS:Unauthenticated BODY SITE: SOURCE:Blood COLLECTED DATE/TIME:09/13/20 11:53 AM Blood Culture SPECIMEN DESCRIPTION : BLOOD RAC SPECIAL REQUESTS : NONE CULTURE : NO GROWTH 3 DAYS REPORT STATUS : PRELIMINARY REPORT Vital Signs Most recent to oldest [Reference Range]: 1 2 3 Height 158 cm (09/16/20 7:15 AM) 158 cm (09/16/20 5:00 AM) 158 cm (09/16/20 2:24 AM) Weight 73.5 kg (09/13/20 12:34 PM) 73.5 kg (09/13/20 10:51 AM) Oxygen Saturation [94-100 %] 93 % *L* (09/16/20 7:15 AM) 100 % (09/16/20 5:00 AM) 94 % (09/16/20 2:24 AM) Pulse Rate [55-90 bpm] 77 bpm (09/16/20 10:13 AM) 77 bpm (09/16/20 7:15 AM) 79 bpm (09/16/20 5:00 AM) Body Mass Index [18.5-24.99] 29.44 *H* (09/13/20 12:34 PM) Blood Pressure [90-138/55-84 mm Hg] 149/69mm Hg *H* (09/16/20 10:13 AM) 149/69mm Hg *H* (09/16/20 7:15 AM) 163/74mm Hg *H* (09/16/20 5:00 AM) Respiratory Rate [16-30 br/min] 18 br/min (09/16/20 8:35 AM) 18 br/min (09/16/20 8:35 AM) 19 br/min (09/16/20 7:15 AM) Temperature [96.8-100.4 DegF] 101.2 DegF *H* (09/16/20 8:35 AM) 102.8 DegF *H* (09/16/20 8:35 AM) 99.0 DegF (09/16/20 7:15 AM) Liters per Minute 3 L/min (09/16/20 7:15 AM) 2 L/min (09/16/20 5:00 AM) 0 L/min (09/16/20 2:24 AM) Mode of Delivery (Oxygen) Nasal cannula (09/16/20 7:15 AM) Nasal cannula (09/16/20 5:00 AM) Room air (09/16/20 2:24 AM) Blood pressure sites Arm, left (09/16/20 7:15 AM) Arm, left (09/16/20 5:00 AM) Arm, right (09/16/20 2:24 AM) Temperature Route Axillary (09/16/20 8:35 AM) Axillary (09/16/20 8:35 AM) Oral (09/16/20 7:15 AM) Dry Weight 73.5 kg (09/13/20 12:34 PM) 73.5 kg (09/13/20 10:51 AM) Social History Social History Type Response Smoking Status Never (less than 100 in lifetime) entered on: 09/13/20 Sex
[2023-08-25 22:33] LABS: Ammonia 44 umol/L (13-55)
[2023-08-25 22:45] LABS: Valproate < 12.5 mcg/mL (50.0-100.0)
--- NOTE | 2023-08-26 06:09 | PC.ADMIT ---
This is a 73years old female admitted from [facility] for unspecified psychosis, on a section 12B upon arrival to the unit at 2100, placed on 5mins check. Safety skin check completed with 2nd RN, Juan, skin is intact. pt is fluent in Niuean, alert and oriented to time and place, pleasantly confused and have limited insight into situation.Upon arrival, pt is pleasant but becomes easily irritable at this program writer for trying to tell her what to do during signing of AZAM. pt has a very labile mood, denied SI/HI.AVH. This program writer unable to complete admission process as pt is irriatble questioning why do I have to be doing all this at this time, I am very tired and I need to go to bed. Its late . pt was allowed to go to bed after taking trazadone 50mg po. pt's belongings list completed by [facility]. Per crisis report, pt initially reported to [facility] for diarrhoe, nausea and vomitting, which has resolved after receiving antisemitic and immodium, but was referred to crisis team because there was concern for her mental health and stability. she has increasingly confused, and disorientated, raising concerns for dementia and psychosis. According to crisis report, pt has adult children that also have concern for her increased confusion and disorientation, as well as incidents of paranoia and stalking people in the community necessitating police involvement and tracking. Pt reported feeling safe on the unit. vital signs stable upon arrival to unit. pt walks independently. Will continue to monitor pt
[2023-08-26 08:55] VITALS: BP 131/60; PULSE 70; RESP 16; TEMP 35.9; O2SAT 95
[2023-08-26] MEDS: Cyanocobalamin (Vitamin B-12) 1,000 MCG TABLET 2000 MCG PO (09:06)
[2023-08-26] MEDS: Cholecalciferol (Vitamin D3) 25 MCG TABLET PO (09:06)
--- NOTE | 2023-08-26 09:06 | P.HPHOSP_ITS ---
[facility] Social History Patient Tobacco Use Status: Tobacco use Unknown Advance Directives: No Advance Directives Information Provided: No Do you have a plan to hurt others: No Plan Nutrition Risks: No Nutritional Risk Patient : No : No Meds Allergies Allergy/AdvReac Type Severity Reaction Status Date / Time azithromycin Allergy Rash Verified 08/25/23 23:39 clonazepam Allergy Unknown Verified 08/25/23 23:39 mirtazapine [From Remeron] Allergy Unknown Verified 08/25/23 23:39 risperidone [From Risperdal] Allergy Muscle Pain Verified 08/25/23 23:39 Active Medications: Current Medications Acetaminophen (Acetaminophen 325 Mg Tablet) 650 mg PO Q6H PRN PRN Reason: Headache/Pain Mild Scale (1-3) Al Hydroxide/Mg Hydroxide (Magnesium Hydrox/Alum Hydrox 30 Ml Oral.Susp) 30 ml PO Q6H PRN PRN Reason: Heartburn/Nausea Aspirin (Aspirin 81 Mg Tab.Chew) 81 mg PO DAILY [facility] Cyanocobalamin (Cyanocobalamin (Vitamin B-12) 1,000 Mcg Tablet) 2,000 mcg PO DAILY [facility] Cyanocobalamin (Cyanocobalamin (Vitamin B-12) 500 Mcg Tablet) 500 mcg PO DAILY [facility] Donepezil HCl (Donepezil Hcl 5 Mg Tablet) 5 mg PO BEDTIME [facility] Last Admin: 08/26/23 02:04 Dose: Not Given Escitalopram Oxalate (Escitalopram Oxalate 10 Mg Tablet) 10 mg PO DAILY [facility] Escitalopram Oxalate (Escitalopram Oxalate 20 Mg Tablet) 20 mg PO DAILY [facility] Hydroxyzine HCl (Hydroxyzine Hcl 25 Mg Tablet) 25 mg PO Q6H PRN PRN Reason: Anxiety Ibuprofen (Ibuprofen 600 Mg Tablet) 600 mg PO TIDWM [facility] Last Admin: 08/26/23 02:04 Dose: Not Given Magnesium Hydroxide (Milk Of Magnesia 30 Ml Oral.Susp) 30 ml PO DAILY PRN PRN Reason: Constipation Melatonin (Melatonin 3 Mg Tablet) 6 mg PO BEDTIME PRN PRN Reason: insomnia Ondansetron HCl (Ondansetron Odt 4 Mg Tab.Rapdis) 4 mg TRANSLINGU QID PRN PRN Reason: Nausea Prazosin HCl (Prazosin Hcl 1 Mg Capsule) 1 mg PO BEDTIME [facility] Last Admin: 08/26/23 02:04 Dose: Not Given Propranolol HCl (Propranolol Hcl La 80 Mg Cap.Sa.24h) 160 mg PO DAILY [facility]; Protocol Quetiapine Fumarate (Quetiapine Fumarate 25 Mg Tablet) 12.5 mg PO BID PRN PRN Reason: Anxiety Vitamin D (Cholecalciferol (Vitamin D3) 25 Mcg Tablet) 25 mcg PO DAILY [facility] Home Medications ?Medication ?Instructions ?Recorded ?Confirmed ?Last Taken ?Type acetaminophen 500 mg PO TID PRN Pain 08/25/23 08/25/23 Unknown History acetaminophen 975 mg PO QID PRN Pain 08/25/23 08/25/23 Unknown History aspirin 81 mg PO DAILY 08/25/23 08/25/23 Unknown History cholecalciferol (vitamin D3) 25 mcg PO DAILY 08/25/23 08/25/23 Unknown History cyanocobalamin (vitamin B-12) 2,500 mcg sublingual DAILY 08/25/23 08/25/23 Unknown History divalproex 250 mg tablet,extended 250 mg PO 08/25/23 Unknown History release 24 hr donepezil 5 mg tablet 5 mg PO BEDTIME 08/25/23 08/25/23 Unknown History escitalopram oxalate 10 mg tablet 10 mg PO QAM 08/25/23 08/25/23 Unknown History escitalopram oxalate 20 mg tablet 20 mg PO DAILY 08/25/23 08/25/23 Unknown His tory ibuprofen 600 mg PO TID 08/25/23 08/25/23 Unknown History ondansetron 4 mg PO QID PRN Nausea 08/25/23 08/25/23 Unknown History prazosin 1 mg PO BEDTIME 08/25/23 08/25/23 Unknown History propranolol 160 mg capsule,24 160 mg PO DAILY 08/25/23 08/25/23 Unknown History hr,extended release quetiapine 12.5 mg PO BID PRN Anxiety 08/25/23 08/25/23 Unknown History ubiquinone 100 mg PO DAILY 08/25/23 08/25/23 Unknown History Results Labs Labs: Laboratory Results - last 24 hr 08/25/23 22:15 Ammonia 44 Valproic Acid < 12.5 L
[2023-08-26] MEDS: Cyanocobalamin (Vitamin B-12) 500 MCG TABLET PO (09:07)
[2023-08-26] MEDS: Propranolol HCL LA 80 MG CAP.SA.24H 160 MG PO (09:07)
--- NOTE | 2023-08-26 09:07 | HO.PM.IMCN ---
History of Present Illness Data of Consult Service Date: 08/26/23 Requesting physician: Xander Villareal Primary Care Provider: Unknown Physician HPI Reason for consult: medical H&P 73 year old female with history of cognitive impairment, TBI, asthma, obesity admitted to [facility] from [facility] with consult placed to hospitalist service for medical H&P. Pt unavailable for interview/exam at time of visit. She had initially presented to [facility] with nausea/vomiting/diarrhea that had started 1-2 days prior to arrival (5.18). At [facility], abdominal exam was benign and no witnessed episodes of vomiting or diarrhea. She was given IV fluids and symptoms thought to be related to viral illness or food-borne illness. CT abdomen/pelvis was performed showing some loops of small bowel mildly larger than usual containing more liquid than usual, consistent with acute diarrheal illness. There was no significant leukocytosis. Renal function and electrolyte levels were within normal limits. Lactic acid was within normal limits. Urinalysis unremarkable. TSH 4.33 with normal free T4. Per RN report, no diarrhea reported since arrival. Review of Systems Review of Systems: Yes Other (pt unavailable) COUNT INCLUDES [facility] Medical History TBI (traumatic brain injury) Asthma Cognitive impairment Social History Patient Tobacco Use Status: Tobacco use Unknown Advance Directives: No Advance Directives Information Provided: No Do you have a plan to hurt others: No Plan Nutrition Risks: No Nutritional Risk Patient : No : No Meds Allergies Allergy/AdvReac Type Severity Reaction Status Date / Time azithromycin Allergy Rash Verified 08/25/23 23:39 clonazepam Allergy Unknown Verified 08/25/23 23:39 mirtazapine [From Remeron] Allergy Unknown Verified 08/25/23 23:39 risperidone [From Risperdal] Allergy Muscle Pain Verified 08/25/23 23:39 Active Medications: Current Medications Acetaminophen (Acetaminophen 325 Mg Tablet) 650 mg PO Q6H PRN PRN Reason: Headache/Pain Mild Scale (1-3) Al Hydroxide/Mg Hydroxide (Magnesium Hydrox/Alum Hydrox 30 Ml Oral.Susp) 30 ml PO Q6H PRN PRN Reason: Heartburn/Nausea Aspirin (Aspirin 81 Mg Tab.Chew) 81 mg PO DAILY [facility] Cyanocobalamin (Cyanocobalamin (Vitamin B-12) 1,000 Mcg Tablet) 2,000 mcg PO DAILY [facility] Cyanocobalamin (Cyanocobalamin (Vitamin B-12) 500 Mcg Tablet) 500 mcg PO DAILY [facility] Donepezil HCl (Donepezil Hcl 5 Mg Tablet) 5 mg PO BEDTIME [facility] Last Admin: 08/26/23 02:04 Dose: Not Given Escitalopram Oxalate (Escitalopram Oxalate 10 Mg Tablet) 10 mg PO DAILY [facility] Escitalopram Oxalate (Escitalopram Oxalate 20 Mg Tablet) 20 mg PO DAILY [facility] Hydroxyzine HCl (Hydroxyzine Hcl 25 Mg Tablet) 25 mg PO Q6H PRN PRN Reason: Anxiety Ibuprofen (Ibuprofen 600 Mg Tablet) 600 mg PO TIDWM [facility] Last Admin: 08/26/23 02:04 Dose: Not Given Magnesium Hydroxide (Milk Of Magnesia 30 Ml Oral.Susp) 30 ml PO DAILY PRN PRN Reason: Constipation Melatonin (Melatonin 3 Mg Tablet) 6 mg PO BEDTIME PRN PRN Reason: insomnia Ondansetron HCl (Ondansetron Odt 4 Mg Tab.Rapdis) 4 mg TRANSLINGU QID PRN PRN Reason: Nausea Prazosin HCl (Prazosin Hcl 1 Mg Capsule) 1 mg PO BEDTIME [facility] Last Admin: 08/26/23 02:04 Dose: Not Given Propranolol HCl (Propranolol Hcl La 80 Mg Cap.Sa.24h) 160 mg PO DAILY [facility]; Protocol Quetiapine Fumarate (Quetiapine Fumarate 25 Mg Tablet) 12.5 mg PO BID PRN PRN Reason: Anxiety Vitamin D (Cholecalciferol (Vitamin D3) 25 Mcg Tablet) 25 mcg PO DAILY [facility] Home Medications ?Medication ?Instructions ?Recorded ?Confirmed ?Last Taken ?Type acetaminophen 500 mg PO TID PRN Pain 08/25/23 08/25/23 Unknown History acetaminophen 975 mg PO QID PRN Pain 08/25/23 08/25/23 Unknown History aspirin 81 mg PO DAILY 08/25/23 08/25/23 Unknown History cholecalciferol (vitamin D3) 25 mcg PO DAILY 08/25/23 08/25/23 Unknown History cyanocobalamin (vitamin B-12) 2,500 mcg sublingual DAILY 08/25/23 08/25/23 Unknown History divalproex 250 mg tablet,extended 250 mg PO 08/25/23 Unknown History release 24 hr donepezil 5 mg tablet 5 mg PO BEDTIME 08/25/23 08/25/23 Unknown History escitalopram oxalate 10 mg tablet 10 mg PO QAM 08/25/23 08/25/23 Unknown History escitalopram oxalate 20 mg tablet 20 mg PO DAILY 08/25/23 08/25/23 Unknown History ibuprofen 600 mg PO TID 08/25/23 08/25/23 Unknown History ondansetron 4 mg PO QID PRN Nausea 08/25/23 08/25/23 Unknown History prazosin 1 mg PO BEDTIME 08/25/23 08/25/23 Unknown History propranolol 160 mg capsule,24 160 mg PO DAILY 08/25/23 08/25/23 Unknown History hr,extended release quetiapine 12.5 mg PO BID PRN Anxiety 08/25/23 08/25/23 Unknown History ubiquinone 100 mg PO DAILY 08/25/23 08/25/23 Unknown History Physical Exam Vital Signs and Narrative: Pt unavailable for exam Results Labs Labs: Laboratory Results - last 24 hr 08/25/23 22:15 Ammonia 44 Valproic Acid < 12.5 L Assessment and Plan (1) Routine medical exam: Status: Acute Plan 73 year old female with history of cognitive impairment, TBI, asthma, obesity admitted to [facility] psych from [facility] with consult placed to hospitalist service for medical H&P. #Cognitive impairment -plan per psychiatry #Acute diarrheal illness -pt unavailable, but per rn, no reported diarrhea since arrival -ct scan results consistent wtih acute diarrheal illness without any significant lab abnormalities -encourage PO fluids -if diarrhea recurs, check gi panel, cdiff pcr #MIld intermittent asthma -albuterol prn Thank you for allowing me to participate in this consult. Signing off at this time. Please do not hesitate to call for further questions or for any acute medical issues.
--- NOTE | 2023-08-26 12:24 | P.HPPS_ITS ---
[facility] Date of Service: 08/26/23 Chief Complaint: Adjustment d/o, unspecified. 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 According to the crisis assessment, the patient self presented to the emergency room for nausea, vomiting and diarrhea. She was medically addressed and later on transferring to this facility for dementia psychosis. According to the crisis assessment her adult children were worried about exacerbation of confusion, disorientation and episodes of paranoia stocking people in the community that needed police involvement and her level of functioning questionable. On interview, the patient was very pleasant and cooperative, she reported that she had been sick for the last 4 days before the admission to the emergency room with nausea, vomiting, and diarrhea and she walked into the emergency room asking for help. She admitted that due to discuss the intestinal symptoms that she was confused at times. She was surprised that she was transferred on a Section 12 be to a psychiatric unit. 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 She has an ankle monitor from the court. She explained that there is someone always harassing her and 1 day she tried to confronted this person and she went to her home, knocked on the window and broke it. The police was called, she was charged and later on the crown presser put her with an ankle monitor. She states that it was only a misdemeanor and she minimized her legal problems. She stated that she received psychiatric treatment by an outpatient psychiatrist and therapist and she gave us consent to contact her providers. During the interview she adamantly denies suicidal or homicidal thoughts she states that she is feeling better and she wants to discharge as soon as possible. She was able to contract for safety. We review her list of medications and she was prescribed with Aricept a very low dose of Seroquel. We will try to gather more collateral information. Past Psychiatric History: The patient reported that she has never been admitted into the hospital for psychiatric reasons but she is follows outpatient services. The patient tried to minimize her legal problems with the ankle monitor. Medical Evaluation Reviewed: Yes [facility] Medical History TBI (traumatic brain injury) Asthma Cognitive impairment Family History: Denies Social History: The patient reported that she was born and raised in [place], she has 2 adult children that does not live with her. 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 Substance History: Denies Trauma History: Reports history of PTSD but refused to elaborate Diagnostics Vital Signs (24Hr): Vital Signs - 24 hr 08/26/23 08:55 Temperature 96.6 F L Pulse Rate 70 Respiratory Rate 16 Blood Pressure 131/60 Pulse Oximetry 95 Oxygen Delivery Method Room Air Labs Labs: Laboratory Results - last 48 hr 08/25/23 22:15 Ammonia 44 Valproic Acid < 12.5 L Meds/Allergies Meds Home Medications ?Medication ?Instructions ?Recorded ?Confirmed ?Type acetaminophen 500 mg PO TID PRN Pain 08/25/23 08/25/23 History acetaminophen 975 mg PO QID PRN Pain 08/25/23 08/25/23 History aspirin 81 mg PO DAILY 08/25/23 08/25/23 History cholecalciferol (vitamin D3) 25 mcg PO DAILY 08/25/23 08/25/23 History cyanocobalamin (vitamin B-12) 2,500 mcg sublingual DAILY 08/25/23 08/25/23 History divalproex 250 mg tablet,extended 250 mg PO 08/25/23 History release 24 hr donepezil 5 mg tablet 5 mg PO BEDTIME 08/25/23 08/25/23 History escitalopram oxalate 10 mg tablet 10 mg PO QAM 08/25/23 08/25/23 History escitalopram oxalate 20 mg tablet 20 mg PO DAILY 08/25/23 08/25/23 History ibuprofen 600 mg PO TID 08/25/23 08/25/23 History ondansetron 4 mg PO QID PRN Nausea 08/25/23 08/25/23 History prazosin 1 mg PO BEDTIME 08/25/23 08/25/23 History propranolol 160 mg capsule,24 160 mg PO DAILY 08/25/23 08/25/23 History hr,extended release quetiapine 12.5 mg PO BID PRN Anxiety 08/25/23 08/25/23 History ubiquinone 100 mg PO DAILY 08/25/23 08/25/23 History Allergies Allergies Allergy/AdvReac Type Severity Reaction Status Date / Time azithromycin Allergy Rash Verified 08/25/23 23:39 clonazepam Allergy Unknown Verified 08/25/23 23:39 mirtazapine [From Remeron] Allergy Unknown Verified 08/25/23 23:39 risperidone [From Risperdal] Allergy Muscle Pain Verified 08/25/23 23:39 Mental Status Exam Mental Status Exam Patient Appearance: Appropriate (On hospital gowns) Patient Orientation: Person and Situation Level of Consciousness: Awake and Appropriate Patient Behavior: Guarded and Passive Mood Description: Calm Affect Description: Constricted Patient Cognition Impaired: Yes Ability to Follow Directions: Good Speech Pattern: Clear Hallucinations: None Delusions: Paranoid Ideation Thought Process: Distracted and Evasive Thought Content: positive for Circumstantial Judgement: Fair Assessment & Plan Assessment & Plan (1) Dementia: Status: Acute Code(s): F03.90 - Unspecified dementia, unspecified severity, without behavioral disturbance, psychotic disturbance, mood disturbance, and anxiety (2) Psychosis: Status: Acute Code(s): F29 - Unspecified psychosis not due to a substance or known physiological condition Plan The patient is an elderly female with a past history of dementia, PTSD on Lexapro, with past legal encounters due to harassment and possible psychosis. She was initially assessed in the emergency room of another hospital due to gastrointestinal symptoms with dehydratation and apparently she was delirious on admission to the ED. According to crisis, her children reported history of psychosis with legal encounters with an ankle monitor. Plan 1. Gather collateral information the patient gave us permission to her providers in the community and her family. 2. Continue with Lexapro as prescribed. 3. Continue with medical workout. 4. Reassessment with results. Patient educated on: diagnosis and medical condition Reason for continued inpatient stay Substantial Risk for: inability to function, rapid decompensation and med/psych decompensation Statement Statement: I have reviewed the history and physical and performed a pertinent examination on my patient. No changes have occurred unless specified. If the History and Physical was not performed prior to admission, the Hospitalist's service will be consulted for completing the admission physical. Time Spent With Patient Time: Total time managing care of this patient today __20__ minutes.
[2023-08-26 20:00] VITALS: BP 114/65; PULSE 57; TEMP 36.5; O2SAT 95
[2023-08-26] MEDS: Melatonin 3 MG TABLET 6 MG PO (20:30)
[2023-08-27 08:00] VITALS: BP 162/69; PULSE 60; RESP 18; O2SAT 94
[2023-08-27] MEDS: Cholecalciferol (Vitamin D3) 25 MCG TABLET PO (08:11)
[2023-08-27] MEDS: Cyanocobalamin (Vitamin B-12) 500 MCG TABLET PO (08:11)
[2023-08-27] MEDS: Ibuprofen 600 MG TABLET PO ×2 (08:12→17:00)
[2023-08-27] MEDS: Cyanocobalamin (Vitamin B-12) 1,000 MCG TABLET 2000 MCG PO (08:12)
[2023-08-27] MEDS: Propranolol HCL LA 80 MG CAP.SA.24H 160 MG PO (08:12)
[2023-08-27] MEDS: Escitalopram Oxalate 10 MG TABLET PO (08:12)
[2023-08-27 09:29] LABS: MANUAL DIFF FLAG NO
[2023-08-27 09:42] LABS: Basophils Percent Auto 0.4 % (0-2); Eosinophils Absolute Auto 0.1 X10*3/uL (0.0-0.4); Eosinophils Percent Auto 1.8 % (0-4); Hematocrit 38.8 % (37.0-47.0); Hemoglobin 12.4 g/dl (12.0-16.0); Imm Gran Abs Auto 0.03 X10*3/uL (0.00-0.03); Imm Gran Pct Auto 0.4 % (0.0-0.4); Lymphocytes Absolute Auto 2.1 X10*3/uL (1.2-4.9); Lymphocytes Percent Auto 28.6 % (20-40); Mean Corpuscular Volume 90.7 fL (80.0-98.0); Mean Platelet Volume 9.9 fL (9.4-12.3); Monocytes Absolute Auto 0.6 X10*3/uL (0.1-1.2); Monocytes Percent Auto 8.7 % (2-11); Neutrophils Absolute Auto 4.4 x10*3/uL (2.0-8.3); Neutrophils Percent Auto 60.1 % (45-73); Platelet Count 173 X10*3/uL (160-400); Red Blood Count 4.28 X10*6/uL (4.20-5.50); Red Cell Distribution Width 13.4 % (11.0-16.0); White Blood Count 7.2 X10*3/uL (4.8-10.8)
--- NOTE | 2023-08-27 10:01 | HO.PSYCHPN ---
Subjective Subjective Date of Service: 08/27/23 Reason For Visit: Adjustment d/o, unspecified. PTSD Subjective Notes: Section 12B Interim History: The patient has been irritable but redirectable, she stated that she wanted to go home as soon as possible. She reported that her dose of Lexapro was not the correct one, we will review as per pharmacy records. The public health social worker reported that the patient refused to give us consent to contact her family, her daughter had been calling frequently. She could contact the court and she has 3 pending charges: tresspassing, break and entering and vandalizing property. Apparently, since 2006, she has been harrasing a female individual, stating that she had a relation with her and she had legal problems, curretntly with an ankle monitor. Her detective captain wants her a Forensic evaluation. On interview, she adamantly denies suicial or homicidal thoughts, hallucinations or delusions, she has refused to have antipsychotics at this moment. Mental Status Exam Mental Status Exam Patient Appearance: Appropriate (on hospital gowns) Patient Orientation: Person and Situation Level of Consciousness: Awake and Appropriate Patient Behavior: Guarded and Passive Mood Description: Withdrawn Affect Description: Constricted Patient Cognition Impaired: Yes Ability to Follow Directions: Good Speech Pattern: Clear Hallucinations: None Delusions: Ideas of Reference Thought Process: Linear and Evasive Thought Content: positive for Circumstantial Judgement: Fair Diagnostics Vital Signs (24Hr): Vital Signs - 24 hr 08/26/23 20:00 08/27/23 08:00 Temperature 97.7 F Pulse Rate 57 60 Respiratory Rate 18 Blood Pressure 114/65 162/69 H Pulse Oximetry 95 94 Oxygen Delivery Method Room Air Room Air Labs 08/27/23 09:25 08/27/23 09:25 Labs: Laboratory Results - last 48 hr 08/25/23 08/27/23 22:15 09:25 WBC 7.2 RBC 4.28 Hgb 12.4 Hct 38.8 MCV 90.7 MCH 29.0 MCHC 32.0 RDW 13.4 Plt Count 173 MPV 9.9 Immature Gran % (Auto) 0.4 Neut % (Auto) 60.1 Lymph % (Auto) 28.6 [place] % (Auto) 8.7 Eos % (Auto) 1.8 Baso % (Auto) 0.4 Lymph # (Auto) 2.1 [place] # (Auto) 0.6 Eos # (Auto) 0.1 Baso # (Auto) 0.0 Abs Immat Gran (auto) 0.03 Absolute Neuts (auto) 4.4 Absolute Nucleated RBC 0.000 Nucleated RBC % (auto) 0.0 Ammonia 44 Valproic Acid < 12.5 L Medications Medications Current Medications Acetaminophen (Acetaminophen 325 Mg Tablet) 650 mg PO Q6H PRN PRN Reason: Headache/Pain Mild Scale (1-3) Al Hydroxide/Mg Hydroxide (Magnesium Hydrox/Alum Hydrox 30 Ml Oral.Susp) 30 ml PO Q6H PRN PRN Reason: Heartburn/Nausea Aspirin (Aspirin 81 Mg Tab.Chew) 81 mg PO DAILY [facility] Last Admin: 08/27/23 08:15 Dose: Not Given Cyanocobalamin (Cyanocobalamin (Vitamin B-12) 1,000 Mcg Tablet) 2,000 mcg PO DAILY [facility] Last Admin: 08/27/23 08:12 Dose: 2,000 mcg Cyanocobalamin (Cyanocobalamin (Vitamin B-12) 500 Mcg Tablet) 500 mcg PO DAILY [facility] Last Admin: 08/27/23 08:11 Dose: 500 mcg Donepezil HCl (Donepezil Hcl 5 Mg Tablet) 5 mg PO BEDTIME [facility] Last Admin: 08/26/23 20:32 Dose: Not Given Escitalopram Oxalate (Escitalopram Oxalate 10 Mg Tablet) 10 mg PO DAILY [facility] Last Admin: 08/27/23 08:12 Dose: 10 mg Escitalopram Oxalate (Escitalopram Oxalate 20 Mg Tablet) 20 mg PO DAILY [facility] Hydroxyzine HCl (Hydroxyzine Hcl 25 Mg Tablet) 25 mg PO Q6H PRN PRN Reason: Anxiety Ibuprofen (Ibuprofen 600 Mg Tablet) 600 mg PO TIDWM [facility] Last Admin: 08/27/23 08:12 Dose: 600 mg Magnesium Hydroxide (Milk Of Magnesia 30 Ml Oral.Susp) 30 ml PO DAILY PRN PRN Reason: Constipation Melatonin (Melatonin 3 Mg Tablet) 6 mg PO BEDTIME PRN PRN Reason: insomnia Last Admin: 08/26/23 20:30 Dose: 3 mg Ondansetron HCl (Ondansetron Odt 4 Mg Tab.Rapdis) 4 mg TRANSLINGU QID PRN PRN Reason: Nausea Prazosin HCl (Prazosin Hcl 1 Mg Capsule) 1 mg PO BEDTIME [facility] Last Admin: 08/26/23 20:32 Dose: Not Given Propranolol HCl (Propranolol Hcl La 80 Mg Cap.Sa.24h) 160 mg PO DAILY [facility]; Protocol Last Admin: 08/27/23 08:12 Dose: 160 mg Quetiapine Fumarate (Quetiapine Fumarate 25 Mg Tablet) 12.5 mg PO BID PRN PRN Reason: Anxiety Vitamin D (Cholecalciferol (Vitamin D3) 25 Mcg Tablet) 25 mcg PO DAILY [facility] Last Admin: 08/27/23 08:11 Dose: 25 mcg Allergies Allergies Allergy/AdvReac Type Severity Reaction Status Date / Time azithromycin Allergy Rash Verified 08/25/23 23:39 clonazepam Allergy Unknown Verified 08/25/23 23:39 mirtazapine [From Remeron] Allergy Unknown Verified 08/25/23 23:39 risperidone [From Risperdal] Allergy Muscle Pain Verified 08/25/23 23:39 Assessment & Plan Assessment & Plan (1) Dementia: Status: Acute Code(s): F03.90 - Unspecified dementia, unspecified severity, without behavioral disturbance, psychotic disturbance, mood disturbance, and anxiety (2) Psychosis: Status: Acute Code(s): F29 - Unspecified psychosis not due to a substance or known physiological condition Plan The patient is an elderly female with a past history of dementia, PTSD on Lexapro, with past legal encounters due to harassment and possible psychosis. She was initially assessed in the emergency room of another hospital due to gastrointestinal symptoms with dehydratation and apparently she was delirious on admission to the ED. According to crisis, her children reported history of psychosis with legal encounters with an ankle monitor. Plan 1. Gather collateral information the patient gave us permission to her providers in the community and her family. 2. Continue with Lexapro as prescribed. 3. Continue with medical workout. 4. Reassessment with results. 5. I offered her an antipsychotic and she refused. 6. D/C tomorrow Reason for continued inpatient stay Substantial Risk for: inability to function, rapid decompensation and med/psych decompensation Time Spent With Patient Time: Total time managing care of this patient today __20__ minutes.
[2023-08-27 10:28] LABS: Alanine Aminotransferase 37 U/L (0-31); Albumin Level 3.5 g/dL (3.5-5.0); Alkaline Phosphatase 73 U/L (39-117); Anion Gap 14 (12-20); Aspartate Amino Transferase 33 U/L (5-31); Bilirubin Direct < 0.2 mg/dL (0.0-0.5); Bilirubin Total 0.2 mg/dL (0.0-1.0); Blood Urea Nitrogen 14 mg/dL (9-16); Calcium 8.7 mg/dL (8.4-10.2); Carbon Dioxide 26 mmol/L (22-29); Chloride 106 mmol/L (96-108); Cholesterol 130 mg/dL (<200); Estimated Glomerular Filt Rate > 60; Glucose Random 97 mg/dL (60-115); HDL Cholesterol 45 mg/dL (>40); LDL Cholesterol Calculated 71 mg/dL (<100); Potassium 4.4 mmol/L (3.3-5.1); Sodium 142 mmol/L (135-145); Total Protein 6.3 g/dL (6.5-8.0); Triglycerides 71 mg/dL (<150)
[2023-08-27 10:38] LABS: Thyroid Stimulating Hormone 1.18 uIU/mL (0.32-4.0)
[2023-08-27 20:00] VITALS: BP 117/53; PULSE 56; TEMP 35.1; O2SAT 98
[2023-08-27] MEDS: Melatonin 3 MG TABLET 6 MG PO (20:02)
[2023-08-27] MEDS: Prazosin HCL 1 MG CAPSULE PO (22:19)
[2023-08-27] MEDS: Donepezil HCl 5 MG TABLET PO (22:19)
[2023-08-28 08:00] VITALS: BP 109/58; PULSE 63; RESP 18; TEMP 36; O2SAT 95
--- NOTE | 2023-08-28 08:06 | PM.PSYDC ---
DS: Providers Provider Date of Service: 08/28/23 Date of admission: 08/25/23 21:03 Date of discharge: 08/28/23 Primary care physician: Unknown Physician Consults: 08/25/23 21:56 Consult to Hospitalist Routine Comment: Consulting Provider: Hospitalist Reason For Exam: OSH admission Attending physician on discharge: Xander Villareal DS: Diagnosis Discharge Diagnosis (1) Dementia: Status: Acute (2) Psychosis: Status: Acute DS: Medications Discharge Medications Home Medications: Home Medications ?Medication ?Instructions ?Recorded ?Confirmed acetaminophen 500 mg PO TID PRN Pain 08/25/23 08/25/23 acetaminophen 975 mg PO QID PRN Pain 08/25/23 08/25/23 aspirin 81 mg PO DAILY 08/25/23 08/25/23 cholecalciferol (vitamin D3) 25 mcg PO DAILY 08/25/23 08/25/23 cyanocobalamin (vitamin B-12) 2,500 mcg sublingual DAILY 08/25/23 08/25/23 divalproex 250 mg tablet,extended 250 mg PO 08/25/23 release 24 hr donepezil 5 mg tablet 5 mg PO BEDTIME 08/25/23 08/25/23 escitalopram oxalate 10 mg tablet 10 mg PO QAM 08/25/23 08/25/23 escitalopram oxalate 20 mg tablet 20 mg PO DAILY 08/25/23 08/25/23 ibuprofen 600 mg PO TID 08/25/23 08/25/23 ondansetron 4 mg PO QID PRN Nausea 08/25/23 08/25/23 prazosin 1 mg PO BEDTIME 08/25/23 08/25/23 propranolol 160 mg capsule,24 160 mg PO DAILY 08/25/23 08/25/23 hr,extended release quetiapine 12.5 mg PO BID PRN Anxiety 08/25/23 08/25/23 ubiquinone 100 mg PO DAILY 08/25/23 08/25/23 Mental Status Exam Mental Status Exam Patient Appearance: Appropriate Patient Orientation: Person and Situation Level of Consciousness: Awake and Appropriate Patient Behavior: Appropriate and Guarded Mood Description: Withdrawn Affect Description: Constricted Patient Cognition Impaired: Yes Ability to Follow Directions: Good Speech Pattern: Clear Hallucinations: None Delusions: Paranoid Ideation Thought Process: Distracted and Linear Thought Content: positive for [place] and positive for Circumstantial Judgement: Fair Data Data Completed and Pending Completed studies during hospitalization [Text1]: 08/25/23 08/27/23 22:15 09:25 WBC 7.2 RBC 4.28 Hgb 12.4 Hct 38.8 MCV 90.7 MCH 29.0 MCHC 32.0 RDW 13.4 Plt Count 173 MPV 9.9 Immature Gran % (Auto) 0.4 Neut % (Auto) 60.1 Lymph % (Auto) 28.6 [place] % (Auto) 8.7 Eos % (Auto) 1.8 Baso % (Auto) 0.4 Lymph # (Auto) 2.1 [place] # (Auto) 0.6 Eos # (Auto) 0.1 Baso # (Auto) 0.0 Abs Immat Gran (auto) 0.03 Absolute Neuts (auto) 4.4 Absolute Nucleated RBC 0.000 Nucleated RBC % (auto) 0.0 Sodium 142 Potassium 4.4 Chloride 106 Carbon Dioxide 26 Anion Gap 14 BUN 14 Creatinine 0.75 Estim Creat Clear Calc TNP Estimated GFR > 60 Random Glucose 97 Calcium 8.7 Total Bilirubin 0.2 Direct Bilirubin < 0.2 AST 33 H ALT 37 H Alkaline Phosphatase 73 Ammonia 44 Total Protein 6.3 L Albumin 3.5 Triglycerides 71 Cholesterol 130 LDL Cholesterol, Calc 71 HDL Cholesterol 45 TSH 1.18 Valproic Acid < 12.5 L DS: Summary Hospital Course Hospital Course: 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 She was initially treated with IV fluids and she improve her mental status she was transferring to this facility for continuation of care. Please see the HPI of the admission note for further details. The patient was admitted on a 12 be and she refused to sign conditional voluntary. She wanted to be discharged as soon as possible. The patient refused to sign a consent to contact her family but apparently she was able to give us permission to contact her divorce lawyer, and outpatient providers. Apparently the patient since 2006 had been harassing another individual stating that she was following her and she had legal encounters with 3 charges and an ankle monitor. The patient minimized her story but apparently she had been chronically paranoid with erotomanic delusions. On admission, the patient was awake, alert, cooperative pleasant with good eye contact. She explained that she was feeling sick and that is why she end up on the emergency room she was surprised to be brought here. She tried to minimized her legal encounters and her psychotic symptoms. Even though, the patient was not responding to internal stimuli, she was awake alert and oriented. The occupational therapist did a [place] test and she scored 20/30 and her [place] test shown some impairment but able to be safe in the community. Her daughter tried to contact got several times and we explained her that we can not provide her any information since the patient refused to give us permission to contact her. The patient was assessed several times she denied hallucinations, delusions, suicidal or homicidal thoughts and there was no imminent danger to self or others. Since the patient refused to sign a conditional voluntary we had to discharge her since her 12 be today. Aftercare was arranged as per social security assessor. Time spent discussing smoking cessation with patient: 3 to 10 minutes Status at Discharge Cognitive/behavioral status at discharge: Mildly impaired at baseline Functional status at discharge: independent ambulation Overall status at discharge: patient is back to baseline Time Spent with Patient Time attestation: Total time managing care of this patient today __30__ minutes. Time spent: Less than 30 minutes Discharge Plan Discharge Anticipated Discharge Date/Time: 08/28/23 10:00 Patient Disposition: Home, Self-Care Discharge Diagnosis: Delirium resolved Dementia mild Delusive disorder Referrals: Breanna Perry [facility] [Other] - 09/04/23 11:00 am (Your next Primary Care appointment is scheduled for 09/04/23 at 11AM in the [place], [place] office at [address] [place] [address].) [facility] [Other] - 1 Week (Call placed to therapist to request appoinment. Please follow up directly for appointment.) Dr Ting [place] [facility] [Other] - 1 Week (Appointment request made with [facility] [Other] - 1 Week (Referral placed with elder services for homemaking and medication management services. [facility] to contact you directly for home visit.) Discharge Medications: New quetiapine 25 mg Tablet 12.5 mg PO BID PRN (Reason: Anxiety) 30 Days Qty: 30 0RF cyanocobalamin (vitamin B-12) [Vitamin B-12] 1,000 mcg Tablet 2,000 mcg PO DAILY 30 Days Qty: 60 0RF melatonin 3 mg Tablet 6 mg PO BEDTIME PRN (Reason: insomnia) 30 Days Qty: 60 0RF cyanocobalamin (vitamin B-12) 500 mcg Tablet 500 mcg PO DAILY 30 Days Qty: 30 0RF aspirin 81 mg Tablet,Chewable 81 mg PO DAILY 30 Days Qty: 30 0RF ibuprofen 600 mg Tablet 600 mg PO TIDWM 30 Days Qty: 90 0RF ondansetron 4 mg Tablet,Disintegrating 4 mg translingual QID PRN (Reason: Nausea) 30 Days Qty: 30 0RF escitalopram oxalate 10 mg Tablet 10 mg PO DAILY 30 Days Qty: 30 0RF cholecalciferol (vitamin D3) 25 mcg (1,000 unit) Tablet 25 mcg PO DAILY 30 Days Qty: 30 0RF Continued propranolol 160 mg capsule,extended release 24 hr 160 mg PO DAILY 30 Days Qty: 30 0RF donepezil 5 mg tablet 5 mg PO BEDTIME 30 Days Qty: 30 0RF prazosin 1 mg PO BEDTIME 30 Days Qty: 30 0RF Discontinued escitalopram oxalate 20 mg tablet 20 mg PO DAILY escitalopram oxalate 10 mg tablet 10 mg PO QAM divalproex 250 mg tablet extended release 24 hr 250 mg PO acetaminophen 975 mg PO QID PRN (Reason: Pain) acetaminophen 500 mg PO TID PRN (Reason: Pain) aspirin 81 mg PO DAILY cholecalciferol (vitamin D3) 25 mcg PO DAILY cyanocobalamin (vitamin B-12) 2,500 mcg sublingual DAILY ibuprofen 600 mg PO TID ondansetron 4 mg PO QID PRN (Reason: Nausea) quetiapine 12.5 mg PO BID PRN (Reason: Anxiety) ubiquinone capsule 100 mg PO DAILY Discharge Orders: Discharge Order (Routine); Ordered 08/28/23 Ordered By: Xander Villareal Diet: Advance to usual diet Activity on Discharge: As tolerated Stand Alone Forms: Patient Portal Discharge page Print Language: Bangladeshi Care Plan Goals: Care plan goals regarding psychosis were not achieved since the patient refused treatment. Health Concerns: Continue treatment with primary care physician Plan of Treatment: Continue treatment with outpatient providers and forensics evaluation. 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 She was brought to this facility after she was delirious due to acute gastrointestinal problems, still with odd believes but no acute safety concerns. The patient was discharged since we do not have grounds to file a Section 7 and 8. Aftercare was arranged.
[2023-08-28] MEDS: Cholecalciferol (Vitamin D3) 25 MCG TABLET PO (09:11)
[2023-08-28] MEDS: Aspirin 81 MG TAB.CHEW PO (09:11)
[2023-08-28] MEDS: Escitalopram Oxalate 10 MG TABLET PO (09:11)
[2023-08-28] MEDS: Cyanocobalamin (Vitamin B-12) 1,000 MCG TABLET 2000 MCG PO (09:11)
[2023-08-28] MEDS: Cyanocobalamin (Vitamin B-12) 500 MCG TABLET PO (09:11)
[2023-08-28] MEDS: Propranolol HCL LA 80 MG CAP.SA.24H 160 MG PO (09:11)
== END 2023-08-28 13:00 | disposition home or self-care (01) | DRG 885 ==
PROVIDERS: Psychiatry & Neurology Psychiatry; Admitting Provider Psychiatry & Neurology Psychiatry; Visit Provider Psychiatry & Neurology Psychiatry
DX: F29 Unspecified psychosis not due to a substance or known physiological condition (principal); F03.A0 Unspecified dementia, mild, without behavioral disturbance, psychotic disturbance, mood disturbance, and anxiety; J45.20 Mild intermittent asthma, uncomplicated; Z87.820 Personal history of traumatic brain injury; Z79.82 Long term (current) use of aspirin; Z79.899 Other long term (current) drug therapy
CPT/HCPCS: 36415; 80048; 80061; 80076; 80164; 82140; 84443; 85025

== ENCOUNTER → 2023-08-25 21:03 | Outpatient (BNV) | payer MEDICARE, SELFPAY | PROVIDERS: Admitting Provider Psychiatry & Neurology Psychiatry; Visit Provider Physician Assistant | DX: R19.7 Diarrhea, unspecified (principal) | CPT/HCPCS: 99221 ==

== ENCOUNTER → 2023-08-25 21:03 | Outpatient (BNV) | payer MEDICARE, SELFPAY | PROVIDERS: Admitting Provider Psychiatry & Neurology Psychiatry; Visit Provider Psychiatry & Neurology Psychiatry | DX: F29 Unspecified psychosis not due to a substance or known physiological condition (principal); F03.90 Unspecified dementia, unspecified severity, without behavioral disturbance, psychotic disturbance, mood disturbance, and anxiety | CPT/HCPCS: 90792; 99232; 99238 ==